=== PATIENT | male | born 1940 | race Caucasian/White ===

== ENCOUNTER 2021-04-21 17:00 | Inpatient (IN) | payer OTHER, SELFPAY ==
[~2021-04-21] VITALS: Ht 182.9 cm; Wt 80.7 kg
--- NOTE | 2021-04-21 17:11 | NUR ---
Patient STONE WOOD from [facility], transferred to bed 3. RN evaluating the patient at bedside.
--- NOTE | 2021-04-21 17:21 | NUR ---
Dr. Thayer is evaluating the patient at bedside.
[2021-04-21 17:24] VITALS: BP 127/79
--- NOTE | 2021-04-21 17:33 | NUR ---
Spoke with DONG Chowdhury from [facility]. Per DONG Chowdhury pt A&Ox1 is pt baseline and pt is not eating declining [id number]. Per DONG Chowdhury pt has dementia and is not to be called. Pastor Servando Bragg is pt decision-maker [phone] Thayer pending admission for g-tube placement. Obtained verbal consent with DONG Segundo and DONG Crook.
--- NOTE | 2021-04-21 17:36 | NUR ---
80 MALE BIBA FROM [facility] DUE TO PATIENT NOT EATING/DRINKING ANY FOOD FOR 3 WEEKS. EMS STATES "PATIENT HAS REFUSED TO EAT/DRINK AND TAKE ANY OF HIS MEDICATIONS SINCE LAST WEDNESDAY. [facility] WOULD LIKE A G-TUBE PLACED DUE TO PT NOT EATING" PT A&O X1 TO NAME ONLY, WHICH IS BASELINE FOR PT. PT CURRENTLY HAS D5NS RUNNING AND CURRENT GLUCOSE IS 91. PMH: CVA, DEPRESSION, HTN, SCHIZOPHRENIA, ENCEPHALOPATHY NKA
[2021-04-21] MEDS ORDERED: BISA-246 RC (17:54)
[2021-04-21] MEDS ORDERED: MIRABULK PO (17:54)
[2021-04-21] MEDS ORDERED: ATOR40TA PO (17:54)
[2021-04-21] MEDS ORDERED: MULT-2253 PO (17:54)
[2021-04-21] MEDS ORDERED: TRAZ-343 PO (17:54)
[2021-04-21] MEDS ORDERED: MAGN400S60 PO (17:54)
[2021-04-21] MEDS ORDERED: ATEN25TA7 PO (17:54)
[2021-04-21] MEDS ORDERED: DIVA500T1 PO (17:54)
[2021-04-21] MEDS ORDERED: NIFE30TE5 PO (17:54)
[2021-04-21] MEDS ORDERED: FAMO-90 PO (17:54)
[2021-04-21] MEDS ORDERED: TAMS0.4C96 PO (17:54)
--- NOTE | 2021-04-21 17:56 | NUR ---
COLLECTED MAICO GARLAND, WALKED TO LAB.
--- NOTE | 2021-04-21 18:00 | NUR ---
LAB BEDSIDE WITH PT
[2021-04-21 18:30] LABS: BASOPHILS % (AUTO) 0.5 % (0.0-2.0); EOSINOPHILS # (AUTO) 0.2 K/uL (0-0.4); EOSINOPHILS % (AUTO) 3.9 % (0.0-4.0); HEMATOCRIT 26.8 % (36-52); LYMPHOCYTES # (AUTO) 0.9 K/uL (2.0-11.5); LYMPHOCYTES % (AUTO) 20.7 % (20.5-51.1); MEAN CORPUSCULAR HEMOGLOBIN 32 pg (27-31); MEAN CORPUSCULAR HGB CONC 34 g/dL (33-37); MEAN CORPUSCULAR VOLUME 94.2 fL (80-94); MONOCYTES # (AUTO) 0.6 K/uL (0.8-1.0); MONOCYTES % (AUTO) 14.3 % (1.7-9.3); NEUTROPHILS # (AUTO) 2.6 K/uL (1.8-7.7); NEUTROPHILS % (AUTO) 60.6 % (42.2-75.2); PLATELET COUNT (AUTO) 156 K/uL (140-450); RED BLOOD CELL COUNT(AUTO) 2.84 MIL/uL (4.20-6.10); RED CELL DISTRIBUTION WIDTH 14.9 % (11.6-13.7); WHITE BLOOD COUNT (AUTO) 4.3 K/uL (4.8-10.8)
[2021-04-21 18:42] LABS: PROTHROMBIN TIME 11.6 secs (10.8-13.4)
[2021-04-21 18:49] LABS: ALBUMIN 2.2 g/dL (3.4-5.0); ANION GAP 11.7 (8-16); ASPARTATE AMINOTRANSFERASE 22 U/L (15-37); CHLORIDE 109 mmol/L (98-107); CREATININE 1.4 mg/dL (0.6-1.3); GLUCOSE 103 mg/dL (74-106); POTASSIUM 3.7 mmol/L (3.5-5.1); SODIUM SERUM 140 mmol/L (136-145); TOTAL BILIRUBIN 0.4 mg/dL (0.0-1.0); UREA NITROGEN, BLOOD 23 mg/dL (7-18)
--- NOTE | 2021-04-21 19:20 | NUR ---
PT RESTING BEDSIDE. VITAL SIGNS STABLE. WILL CONTUINE TO MONITOR. BED IN LOWEST POSITION.
--- NOTE | 2021-04-21 19:24 | NUR ---
Gave report to DONG Jackson. Transfer of care at this time.
--- NOTE | 2021-04-21 19:25 | NUR ---
GAVE REPORT TO SPARKLE UMANA. TRANSFER OF CARE GIVEN
--- NOTE | 2021-04-21 19:55 | NUR ---
PT. LAYING IN SUPINE POSITION, VOICES NO COMPLAINTS AT THIS TIME. BREATHING EVEN AND UNLABORED. WILL CONTINUE TO MONITOR.
[2021-04-21] MEDS ORDERED: DEXT 5% / NACL 0.45% 1,000 ML IV ONE (21:25)
--- NOTE | 2021-04-21 22:03 | NUR ---
ATTEMPTED TO CALL RN. BRENNA LINE WAS NOT PICKED UP. WILL CALL AGAIN IN 5 MINS. Addendum: 04/21/21 at 2203 by DYANA TO GIVE REPORT TO DONG CEJA.
--- NOTE | 2021-04-21 22:14 | NUR ---
Patient will be admitted to care of DR. DE LA FUENTE. Admited to TELEMETRY UNIT. Will go to room 123A. Belongings list completed. Report CALLED TO DONG CEJA.
--- NOTE | 2021-04-21 22:26 | NUR ---
PT. TAKEN TO TELEMETRY UNIT VIA GURNEY, TO ROOM 123A. ACCOMPANIED BY THA KUO AND DONG VILLAGRAN (MYSELF)
--- NOTE | 2021-04-21 22:30 | NUR ---
RECEIVED REPORT FROM [facility] IN ER AT 2215, PT ARRIVED VIA GURNEY AND WAS TRANSFERRED TO ROOM 123 BED A. PT IS ALERT AND ORIENTED TO SELF. HE DENIES ANY PAIN AND HIS SKIN IS INTACT. HE HAS A 22 GUAGE ON HIS RIGHT HAND WHICH IS SALINE LOCKED AT THE TIME. PT PLACED ON TELEMETRY AND MRSA SWAB DONE. V/S FOLLOWS: T 98.1 P 69 R 18 B/P 110/77 02 96% ON ROOM AIR. BED IN LOW POSITION AND LOCKED AND BED ALARM ON.
--- NOTE | 2021-04-21 23:15 | NUR ---
PT WAS GIVEN BED BATH AND YELLOW GOWN FOR FALLS PRECAUTIONS PLACE. PT RUNNING D5N/S AT 60MLS/HR ORDERED. PT DENIES ANY PAIN . PT WAS TURNED AND REPOSITIONED IN BED. NO S/S OF PAIN OR DISTRESS NOTED , ALL ORDERED PRECAUTIONS IN PLACE.
--- NOTE | 2021-04-22 00:30 | NUR ---
PT ASLEEP IN BED ND5N/S RUNNING ORDERED V/S FOLLOWS: T 97.8 P 71 R 18 B/P 133/80 02 94% ON ROOM AIR. ALL FALLS PRECAUTIONS IN PLACE AND PT IS NPO FOR G TUBE PLACEMENT.
[2021-04-22 03:41] VITALS: BP 110/71
[2021-04-22 04:00] VITALS: BP 119/78
--- NOTE | 2021-04-22 04:30 | NUR ---
PT WAS TURNED , CHANGED AND REPOSITIONED IN BED , NO S/S OF PAIN OR DISTRESS NOTED, PT ON ROOM AIR. HE IS RUNNING FLUIDS ORDERED. PT REMAINS NPO., ALL ORDERED PRECAUTIONS IN PLACE.
--- NOTE | 2021-04-22 07:30 | NUR ---
RECEIVED REPORT FROM DAY SHIFT NURSE. PT IN BED RESTING. PT AAOX1, CONFUSED. RESPIRATIONS EVEN AND UNLABORED TO ROOM AIR. ABDOMEN IS SOFT AND NON-TENDER. SKIN IS WARM, DRY, AND INTACT. PT WITH IV ACCESS ON R HAND G22 PATENT AND INTACT. PT DENIES ANY PAIN OR DISCOMFORT AT THIS TIME. NO REQUESTS MADE. PT KEPT COMFORTABLE. SAFETY MEASURES IN PLACE, CALL LIGHT WITHIN REACH. WILL CONTINUE TO MONITOR.
[2021-04-22 08:00] VITALS: BP 141/77
--- NOTE | 2021-04-22 08:46 | NUR ---
PATIENT HAS BEEN SCREENED AND CATEGORIZED HIGH NUTRITION RISK. PATIENT WILL BE SEEN WITHIN 1-2 DAYS OF ADMISSION. 04/22/21-04/23/21 RECEIVED FNS REFERRAL FOR REFUSING TO EAT OVER [address]
--- NOTE | 2021-04-22 09:34 | NUR ---
PERINEAL CARE DONE WITH SMOKEHOUSE OPERATOR. PT TOLERATED WELL. PT DENIES ANY PAIN OR DISCOMFORT AT THIS TIME. VSS. WILL CONTINUE TO MONITOR.
[2021-04-22 12:00] VITALS: BP 120/83
--- NOTE | 2021-04-22 12:17 | NUR ---
VS STABLE. PT DENIES PAIN OR DISTRESS. VISITOR AT BEDSIDE.
--- NOTE | 2021-04-22 14:00 | NUR ---
04/22/21 RD INITIAL ASSESSMENT COMPLETED PLEASE REFER TO NUTRITION ASSESSMENT UNDER CARE ACTIVITY FOR ESTIMATED NUTRITIONAL NEEDS. 1. PENDING SWALLOW EVALUATION RECOMMENDATIONS BY RECONCILIATION ANALYST 2. PENDING GI CONSULT FOR A PEG PLACEMENT 3. RECOMMEND JEVITY 1.2 @ 70 ML/HR WITH FREE WATER FLUSH OF 180 ML Q4H; START AT 20 ML/HR AND INCREASE BY 20 ML/HR Q4H -THIS WILL PROVIDE 2016 KCAL AND 93 GRAMS OF PROTEIN, MEETING ADEQUATE NUTRITIONAL NEEDS 4. RD TO FOLLOW-UP 2-3 DAYS, HIGH RISK MILADIS LIRA RD
--- NOTE | 2021-04-22 14:36 | NUR ---
PT ASLEEP. NO S/SX OF DISTRESS NOTED. IVF INFUSING WELL. PT KEPT COMFORTABLE. SAFETY MEASURES IN PLACE. WILL CONTINUE TO MONITOR.
[2021-04-22] MEDS ORDERED: ONDANSETRON 4 MG/2 ML VIAL IM/IVP PRN (15:00)
[2021-04-22] MEDS ORDERED: POTASSIUM CHLORIDE 10 MEQ TABER PO PRN (15:00)
[2021-04-22] MEDS ORDERED: NACL 0.45% 1,000 ML IV SCH (15:00)
[2021-04-22] MEDS ORDERED: LORazepam 2 MG/ML VIAL IM/IVP PRN (15:00)
[2021-04-22] MEDS ORDERED: ACETAMINOPHEN 325 MG TAB PO PRN (15:00)
[2021-04-22] MEDS ORDERED: ZOLPIDEM 5 MG TAB PO PRN (15:00)
[2021-04-22] MEDS ORDERED: DOCUSATE SODIUM 100 MG GELCAP PO PRN (15:00)
[2021-04-22] MEDS ORDERED: HYDROcodone/APAP 5/325 MG 1 TAB TAB PO PRN (15:00)
[2021-04-22] MEDS ORDERED: MAG SULF 2000 MG/WATER PREMIX 50 ML IV PRN (15:00)
[2021-04-22 16:00] VITALS: BP 145/76
--- NOTE | 2021-04-22 16:22 | NUR ---
PT PULLED OUT IV, CANNULA INTACT. NEW IV ACCESS INSERTED ON R FOREARM G22. IVF INFUSING WELL.
[2021-04-22 16:36] LABS: BASOPHILS % (AUTO) 0.5 % (0.0-2.0); EOSINOPHILS # (AUTO) 0.1 K/uL (0-0.4); EOSINOPHILS % (AUTO) 2.6 % (0.0-4.0); HEMATOCRIT 28.4 % (36-52); HEMOGLOBIN 9.6 g/dL (12.0-18.0); MEAN CORPUSCULAR HEMOGLOBIN 32 pg (27-31); MEAN CORPUSCULAR HGB CONC 34 g/dL (33-37); MEAN CORPUSCULAR VOLUME 94.1 fL (80-94); MONOCYTES # (AUTO) 0.7 K/uL (0.8-1.0); MONOCYTES % (AUTO) 15.3 % (1.7-9.3); NEUTROPHILS # (AUTO) 2.7 K/uL (1.8-7.7); NEUTROPHILS % (AUTO) 59.6 % (42.2-75.2); PLATELET COUNT (AUTO) 172 K/uL (140-450); RED BLOOD CELL COUNT(AUTO) 3.02 MIL/uL (4.20-6.10); WHITE BLOOD COUNT (AUTO) 4.5 K/uL (4.8-10.8)
[2021-04-22 16:51] LABS: ANION GAP 10.8 (8-16); CARBON DIOXIDE 24.9 mmol/L (21-32); CHLORIDE 107 mmol/L (98-107); CREATININE 1.5 mg/dL (0.6-1.3); GLUCOSE 87 mg/dL (74-106); POTASSIUM 3.7 mmol/L (3.5-5.1); SODIUM SERUM 139 mmol/L (136-145); UREA NITROGEN, BLOOD 18 mg/dL (7-18)
[2021-04-22 17:06] LABS: MAGNESIUM 1.8 mg/dL (1.8-2.4); THYROID STIMULATING HORMONE 1.89 uIU/mL (0.34-3.74)
--- NOTE | 2021-04-22 19:24 | NUR ---
REPORT GIVEN TO GIORGI UMANA FOR CONTINUITY OF CARE
--- NOTE | 2021-04-22 19:25 | NUR ---
RECEIVED REPORT FROM AM SHIFT. PT AWAKE, CALM, REPEATEDLY ASKING FOR JJ, VOICES NO C/O PAIN OR DISCOMFORT, NO ABNORMAL FACIAL EXPRESSION. NO S/S OF DISTRESS NOTED.
[2021-04-22 20:20] VITALS: BP 147/80
--- NOTE | 2021-04-22 22:10 | NUR ---
MED PASS DONE. PT TOLERATED SC INJECTION WELL WAS COOPERATIVE, AND RE-DIRECTABLE, FIDGETING W/ BLANKET.
--- NOTE | 2021-04-22 22:45 | NUR ---
PT BECAME MORE AGITATED, AND NOT REDIRECTABLE, W/ WORD SALAD, ASKING FOR JJ, IN AN UPSET TONE, REMOVING HIS BLANKET, AND DESTINEE WRAP FROM OVER IV LINE. MEDICATED W/ ATIVAN 0.5MG IM / ZOFRAN 4 MG IVP TO ALLAY ANXIETY.
--- NOTE | 2021-04-22 23:30 | NUR ---
ON ROUNDS PT REMOVED COVERS, PARTIALLY ASLEEP, CALMER. REPOSITIONED, RE-COVERED W/ A WARM BLANKET, AND PERSONAL BLANKET. rESP REG NON-LABORED. RESTING QUIETLY. ATIVAN/ ZOFRAN EFFECTIVE IN ALLAYING PT ANXIETY.
[2021-04-23] MEDS ORDERED: bisacodyL 10 MG SUPP RC PRN (00:15)
[2021-04-23] MEDS ORDERED: DIVALPROEX 500 MG TABER PO PRN (00:15)
[2021-04-23] MEDS ORDERED: traZODone 50 MG TAB PO PRN (00:15)
[2021-04-23] MEDS ORDERED: NIFEdipine 30 MG TABER PO PRN (00:15)
[2021-04-23] MEDS ORDERED: MAGNESIUM HYDROXIDE 2400 MG/30 ML UDC PO PRN (00:15)
[2021-04-23] MEDS ORDERED: FAMOTIDINE 20 MG TAB PO PRN (00:15)
[2021-04-23] MEDS ORDERED: atenoloL 25 MG TAB PO PRN (00:15)
[2021-04-23] MEDS ORDERED: DEXT 5% / NACL 0.9% 500 ML IV SCH (00:20)
--- NOTE | 2021-04-23 01:40 | NUR ---
ON ROUNDS PT ASLEEP. RESP REG NON-LABORED. HEAD REPOSITIONED, AND COVERED W/ BLANKET.
--- NOTE | 2021-04-23 03:10 | NUR ---
PT REPOSITIONED, ASLEEP. RESP REG NON-LABORED, NO S/S OF DISTRESS NOTED.
--- NOTE | 2021-04-23 04:25 | NUR ---
NO BED SCALE, PT BED BOUND Addendum: 04/23/21 at 0537 by Agency 02 RN RN ALVIN: CAS ARMSTRONG
[2021-04-23 04:50] VITALS: BP 145/70
[2021-04-23 05:26] LABS: BASOPHILS % (AUTO) 0.7 % (0.0-2.0); EOSINOPHILS # (AUTO) 0.2 K/uL (0-0.4); EOSINOPHILS % (AUTO) 3.6 % (0.0-4.0); HEMATOCRIT 29.2 % (36-52); HEMOGLOBIN 9.9 g/dL (12.0-18.0); LYMPHOCYTES # (AUTO) 1.2 K/uL (2.0-11.5); LYMPHOCYTES % (AUTO) 23.1 % (20.5-51.1); MEAN CORPUSCULAR HEMOGLOBIN 32 pg (27-31); MEAN CORPUSCULAR HGB CONC 34 g/dL (33-37); MONOCYTES # (AUTO) 0.8 K/uL (0.8-1.0); MONOCYTES % (AUTO) 15.2 % (1.7-9.3); NEUTROPHILS % (AUTO) 57.4 % (42.2-75.2); PLATELET COUNT (AUTO) 178 K/uL (140-450); RED BLOOD CELL COUNT(AUTO) 3.11 MIL/uL (4.20-6.10); RED CELL DISTRIBUTION WIDTH 14.9 % (11.6-13.7); WHITE BLOOD COUNT (AUTO) 5.3 K/uL (4.8-10.8)
[2021-04-23 05:51] LABS: MAGNESIUM 1.6 mg/dL (1.8-2.4)
[2021-04-23 06:11] LABS: ANION GAP 11.4 (8-16); CARBON DIOXIDE 23.3 mmol/L (21-32); CHLORIDE 107 mmol/L (98-107); CREATININE 1.4 mg/dL (0.6-1.3); GLUCOSE 75 mg/dL (74-106); POTASSIUM 3.7 mmol/L (3.5-5.1); SODIUM SERUM 138 mmol/L (136-145); UREA NITROGEN, BLOOD 17 mg/dL (7-18)
--- NOTE | 2021-04-23 06:59 | NUR ---
AM CARE DONE. PT REPOSITIONED. TOLERATED WELL, COVERED W/ WARM BLANKET. ASLEEP AT PRESENT, RESP REG NON-LABORED, NO S/S OF DISTRESS NOTED
[2021-04-23] MEDS ORDERED: DOCUSATE 100 MG/10 ML UDC PO PRN (07:20)
[2021-04-23] MEDS ORDERED: DIVALPROEX 500 MG TABEC PO PRN (07:20)
--- NOTE | 2021-04-23 07:30 | NUR ---
PT ENDORSED BY GUEST SERVICES AGENT NURSE FOR CONTINUITY OF CARE, POC DISCUSSED. PT IS RESTING COMFORTABLE IN BED WITH NO SIGNS OF ACUTE DISTRESS. PT HAS A RIGHT WRIST IV 22G RUNNING 1/2 NS AT 50 ML/HR. PT IS ON ROOM AIR WITH CHEST RISING AND FALLING EVEN AND UNLABORED. PT IS PENDING A SWALLOW EVAL WITH POSSIBLE G TUBE PLACEMENT. PT IS NOT A&O. ALL SAFETY MEASURES IN PLACE, CALL LIGHT WITHIN REACH. WILL CONTINUE TO MONITOR.
[2021-04-23] MEDS: DEXT 5% /NACL 0.9% 1,000 ML IV SCH (07:51)
[2021-04-23 08:00] VITALS: BP 123/83
[2021-04-23] MEDS: POLYETHYLENE GLYCOL 17 GM/PKT PO SCH (08:02)
[2021-04-23] MEDS: MULTIVITAMIN 1 TAB PO SCH (08:02)
--- NOTE | 2021-04-23 08:03 | NUR ---
ST REPORTED PT UNABLE TO SWALLOW.
--- NOTE | 2021-04-23 08:05 | NUR ---
PT WS SEEN FOR DYSPHAGIA. PT WAS POCKETING FOR TRIALS OF PUREE DIET. HIGH RISK OF ASPIRATION. RECOMMENDATION NOTHING BY MOUTH
[2021-04-23 08:18] LABS: T4 (THYROXINE) 5.9 ug/dL (4.5-12.0)
--- NOTE | 2021-04-23 08:48 | NUR ---
SAVANNAH HEPARIN ADMINISTRATION. PRN MAG ADMINSTERED PER MD ORDER FOR LOW MAGNESIUM LEVEL. PT IS AWAKE AND ORIENTED X1. PT VITAL SIGNS WNL. WARM BLANKET GIVEN TO PT. PT IS ON RA WITH NO S/S OF ACUTE DISTRESS. ALL SAFETY MEASURES IN PLACE, WILL CONTINUE TO MONITOR.
[2021-04-23] MEDS ORDERED: NON-FORMULARY ITEM (Multivitamin (Multi-Vitamin Daily) 1 TAB) PO SCH (09:00)
--- NOTE | 2021-04-23 09:38 | NUR ---
PT. WITH LOW LORI SCALE AT HIGH RISK, CONTINUE TO FOLLOW PRESSURE INJURY PREVENTION INTERVENTIONS. -TURN AND REPOSITION PATIENT Q 2H -ASSESS AND MONITOR SKIN CONDITION DURING POSITION CHANGE -OFFLOAD BILATERAL HEELS BY PLACING PILLOWS UNDER CALVES AT ALL TIMES, UNLESS OTHERWISE CONTRAINDICATED -PRESSURE REDISTRIBUTION BY PLACING PILLOWS AND OFFLOADING SACRALCOCCYX -KEEP SKIN CLEAN AND DRY AT ALL TIMES.
--- NOTE | 2021-04-23 09:40 | NUR ---
PT IS ASLEEP IN BED WITH CHEST RISING AND FALLING EVEN AND UNLABORED. ALL SAFETY MEASURES PLACE, WILL CONTINUE TO MONITOR.
--- NOTE | 2021-04-23 10:43 | NUR ---
PT IS ASLEEP WITH O2 AT 86%, PLACED ON 2L NC AND NOW SATING AT 97%. PT EDUCATION PROVIDED, PT UNABLE TO VERBALIZE UNDERSTANDING BUT SAID "THANK YOU". ALL SAFETY MEASURES IN PLACE, CALL LIGHT WITHIN REACH. WILL CONTINUE TO MONITOR.
[2021-04-23] MEDS ORDERED: SODIUM PHOSPHATE 15 MMOLE in NACL 0.9% 250 ML IV SCH (12:10)
[2021-04-23] MEDS ORDERED: POTASSIUM PHOSPHATE 15 MM in NACL 0.9% 250 ML IV ONE (12:10)
--- NOTE | 2021-04-23 12:52 | NUR ---
PT ENDORSED TO DONG REINOOS FOR CONTINUITY OF CARE. POC DISCUSSED.
--- NOTE | 2021-04-23 12:55 | NUR ---
RECEIVED REPORT FROM SAAMNTA UMANA FOR CONTINUITY OF CARE. AO TO SELF. MED SURG. ON 2L NASAL CANNULA, SATURATING AT 97%. FAILED SWALLOW EVAL, ON NPO. IV CLEAN, DRY, AND INTACT, ON RFA, INFUSING D5 1/2 NS AT 60 ML/HR. BILATERAL HEEL REDNESS. SAFETY MEASURES IN PLACE, BED IN LOW POSITION, BED LOCKED, HEAD OF BED AT 30 DEGREES. WILL CONTINUE TO MONITOR.
[2021-04-23] MEDS ORDERED: MAG SULF 2000 MG/WATER PREMIX 50 ML IV SCH (13:30)
--- NOTE | 2021-04-23 15:19 | NUR ---
DC PLANNING: PATIENT CONFUSED, ABLE TO SPEAK BUT NOT ANSWER QUESTIONS. ATTEMPTED TO REACH HIS SPOUSE JHON, MESSAGE LEFT INTRODUCING SELF. CM SPOKE WITH EMANUEL AT [facility]. PATIENT IS CONFUSED, ORIENTED X 1. INCONTINENT X 2, DEPENDENT FOR ALL CARE. EMANUEL STATES PATIENT IS VERY WEAK, UNABLE TO LIFT UTENSILS TO FEED SELF. DPOA FOR PATIENT IS HIS ELEMENTARY SPECIAL EDUCATION TEACHER RASHAD MENCHACA, PHONE [phone], ENDORSED DPOA TO SARAHI ON [facility]. PATIENT WAS LIVING AT HOME UNTIL A MONTH AGO WHEN HE HAD A CVA, TRANSFERRED TO SNF FROM ACUTE SETTING. ABLE TO FOLLOW COMMANDS, IS BEDBOUND. CM WILL ATTEMPT TO SPEAK WITH AND WILL CONTINUE TO FOLLOW FOR NEEDS. Addendum: 04/24/21 at 1541 by Marisol Plascencia CM DC PLANNING: INFORMATION FAXED TO [facility] IN PREPARATION FOR PATIENT RETURN TO FACILITY. MESSAGE ALSO LEFT WITH THE CM FOR [employer]OMED REQUESTING AUTHORIZATION FOR GURNEY TRANSPORT BACK TO [facility]. CM WILL CONTINUE TO FOLLOW FOR NEEDS. Addendum: 04/25/21 at 1156 by Marisol Plascencia CM DC PLANNING: SPOKE WITH CROW SANTANA FROM [facility], AUTH GIVEN FOR GURNEY TRANSPORT WITH [facility] ([phone]), AUTH # [id number]. ROOM ASSIGNMENT AT [facility] IS MD Najma FOLLOWING IS FANTASMA MO. DENTAL SALES REPRESENTATIVE TIME FOR PATIENT IS 3PM, PATIENTS MARLENY MENCHACA ALSO NOTIFIED OF DC, STATES HE WILL NOTIFY PATIENTS . INFORMATION ENDORSED TO PATIENTS NURSE HAJA. CM WILL CONTINUE TO FOLLOW FOR NEEDS.
--- NOTE | 2021-04-23 18:46 | NUR ---
CHECKED ON PATIENT. RESTING, NO SIGN OF DISTRESS OR PAIN. WILL CONTINUE TO MONITOR. WILL ENDORSE TO DIP GUIDER STOVES RN.
--- NOTE | 2021-04-23 19:25 | NUR ---
ENDORSED CARE TO DIANE UMANA FOR CONTINUITY OF CARE.
--- NOTE | 2021-04-23 19:30 | NUR ---
RECEIVED CARE AND REPORT FROM DAYSHIFT RN. PATIENT ALERT AND ORIENTED X1 TO PERSON, CONFUSED, NORMAL FOR PATIENT BASELINE PER DAYSHIFT RN. PATIENT RESTING IN THE BED IN A POSITION OF COMFORT, HOB 30 DEGREES, PATIENT CONNECTED TO NC 2 LPM, TOLERATING WELL. PATIENT HEART AND LUNG SOUNDS AUSCULTATED, S1, S2 HEARD, LUNG SOUNDS SLIGHTLY DIMINISHED IN THE BASES. ABDOMINAL SOUNDS AUSCULTATED, HYPOACTIVE X4 ALL QUADRANTS. HR 72, RR 16, OXYGEN SATURATION AT 96%, NO OBVIOUS SIGNS OF DISTRESS OBSERVED WHILE AT BEDSIDE, PATIENT STATES FEELING FINE WHEN ASKED. PATIENT CURRENT IV SITES INCLUDE RIGHT HAND 22G AND RIGHT AC 22G. IV DRIPS INCLUDE D5-NS 0.9% AT 60 ML/HR. IV SITES INTACT, DRESSING DRY AND FLUSHES WELL. PATIENT CURRENTLY UNABLE TO AMBULATE, BEDREST, RN ASSISTANCE WITH TOILETING, HYGIENE AND REPOSITIONING. SKINS SHOW BILATERAL REDNESS OF THE HEELS. BED LOCKED AND LOWERED INTO A POSITION OF SAFETY AND PATIENT BEING OFFLOADED WITH USE OF PILLOWS AND ASSISTED WITH REPOSITIONING. PATIENT ORIENTED TO THE ROOM, PROMOTING A RESTFUL ENVIRONMENT WITH DECREASED STIMULI, AND NURSE CALL LIGHT GIVEN TO PATIENT. WILL CONTINUE TO REASSESS OFTEN, CLOSELY MONITOR AND FREQUENTLY ROUND THROUGHOUT THE SHIFT.
[2021-04-23 20:00] VITALS: BP 138/83
[2021-04-23] MEDS: FAMOTIDINE 20 MG TAB PO SCH (20:00)
--- NOTE | 2021-04-23 20:30 | NUR ---
DR. RINA MELISSA CALLED UNIT PHONE, GIVEN VERBAL ORDERS TO KEEP THE PATIENT NPO AND MD INSTRUCTED TO HOLD ALL PO MEDICATIONS FOR TONIGHT DUE TO ASPIRATION PRECAUTION, PRIOR TO SCHEDULED G TUBE PLACEMENT. WILL CARRY OUT MD ORDERS.
[2021-04-23] MEDS: ATORVASTATIN 20 MG TAB PO SCH (20:32)
[2021-04-23] MEDS: TAMSULOSIN 0.4 MG CAP PO SCH (20:32)
--- NOTE | 2021-04-23 21:36 | NUR ---
PATIENT RESTING IN A POSITION OF COMFORT, STATES FEELING OK WHEN ASKED. NO OBVIOUS SIGNS OF DISTRESS OBSERVED WHILE AT BEDSIDE. VS STABLE, WILL CONTINUE TO CLOSELY MONITOR AND FREQUENTLY ROUND.
[2021-04-24] MEDS: DEXT 5% /NACL 0.9% 1,000 ML IV SCH (00:07)
--- NOTE | 2021-04-24 00:10 | NUR ---
PATIENT CONTINUES TO REST IN A POSITION OF COMFORT, RN ASSISTANCE WITH REPOSITIONING Q2 HOURS, NO OBVIOUS SIGNS OF DISTRESS OBSERVED WHILE AT BEDSIDE. WILL CONTINUE TO CLOSELY MONITOR AND FREQUENTLY ROUND.
--- NOTE | 2021-04-24 02:05 | NUR ---
VS STABLE, SLEEPING, HOB 30 DEGREES, AIRWAY OPEN, CLEAR AND MAINTAINABLE. NO OBVIOUS SIGNS OF DISTRESS OBSERVED WHILE AT BEDSIDE. WILL CONTINUE TO CLOSELY MONITOR AND FREQUENTLY ROUND.
[2021-04-24 04:00] VITALS: BP 128/84
--- NOTE | 2021-04-24 04:47 | NUR ---
MORNING CARE, GOWN CHANGE, LINEN CHANGE, CHG BATH, JYOTI CARE, HYGIENE, CLEANING AND SAFETY CHECKS PROVIDED. VS STABLE, NO SIGNS OF DISTRESS OBSERVED WHILE AT BEDSIDE. WILL CONTINUE TO CLOSELY MONITOR AND FREQUENTLY ROUND.
[2021-04-24 04:56] LABS: BASOPHILS % (AUTO) 0.9 % (0.0-2.0); EOSINOPHILS # (AUTO) 0.2 K/uL (0-0.4); EOSINOPHILS % (AUTO) 3.3 % (0.0-4.0); HEMOGLOBIN 9.2 g/dL (12.0-18.0); LYMPHOCYTES # (AUTO) 1.1 K/uL (2.0-11.5); LYMPHOCYTES % (AUTO) 23.8 % (20.5-51.1); MEAN CORPUSCULAR HEMOGLOBIN 32 pg (27-31); MEAN CORPUSCULAR HGB CONC 34 g/dL (33-37); MEAN CORPUSCULAR VOLUME 92.9 fL (80-94); MONOCYTES # (AUTO) 0.7 K/uL (0.8-1.0); MONOCYTES % (AUTO) 15.3 % (1.7-9.3); NEUTROPHILS # (AUTO) 2.6 K/uL (1.8-7.7); NEUTROPHILS % (AUTO) 56.7 % (42.2-75.2); PLATELET COUNT (AUTO) 165 K/uL (140-450); RED BLOOD CELL COUNT(AUTO) 2.91 MIL/uL (4.20-6.10); RED CELL DISTRIBUTION WIDTH 14.9 % (11.6-13.7); WHITE BLOOD COUNT (AUTO) 4.5 K/uL (4.8-10.8)
[2021-04-24 06:55] LABS: CHLORIDE 107 mmol/L (98-107); POTASSIUM 3.5 mmol/L (3.5-5.1); SODIUM SERUM 140 mmol/L (136-145)
--- NOTE | 2021-04-24 07:24 | NUR ---
RECEIVED REPORT FROM CERAMIC DESIGN ENGINEER NURSE FOR CONTINUITY OF CARE, POC DISCUSSED. PT IS RESTING IN BED WITH NO ACUTE S/S OF DISTRESS. PT IS ON 2L NC, WITH CHEST RISING AND FALLING EVEN AND UNLABORED. PT HAS BILATERAL HEEL PROTECTORS ON TO PREVENT PRESSURE WOUNDS. PT IS BEDBOUND. PT HAS A RIGHT HAND 22 G RUNNING D5NS AT 60 ML. PT HAS CONSENT PRINTED OUT, PENDING DR MELISSA TO SPEAK WITH RASHAD SPEAR. PT IS A&OX1. ALL SAFETY MEASURES IN PLACE, CALL LIGHT WITHIN REACH WILL CONTINUE TO MONITOR.
[2021-04-24 07:25] LABS: ANION GAP 13.7 (8-16); CARBON DIOXIDE 22.8 mmol/L (21-32); CREATININE 1.5 mg/dL (0.6-1.3); GLUCOSE 85 mg/dL (74-106); UREA NITROGEN, BLOOD 16 mg/dL (7-18)
--- NOTE | 2021-04-24 07:27 | NUR ---
REPORT AND CARE ENDORSED TO DAYSHIFT RN, VS STABLE.
[2021-04-24 07:30] LABS: MAGNESIUM 1.9 mg/dL (1.8-2.4); PHOSPHORUS 2.9 mg/dL (2.5-4.9)
[2021-04-24 08:00] VITALS: BP 143/86
[2021-04-24] MEDS: POLYETHYLENE GLYCOL 17 GM/PKT PO SCH (08:04)
[2021-04-24] MEDS: MULTIVITAMIN 1 TAB PO SCH (08:05)
--- NOTE | 2021-04-24 08:05 | NUR ---
SAVANNAH PO MEDICATION NON-ADMINISTERED, PT IS UNABLE TO SWALLOW, FAILED YESTERDAYS SWALLOW EVAL. SENIOR DIRECTOR OF STRATEGY NURSE SAID DR IS AWARE OF PT UNABLE TO RECEIVE PO MEDICATION.
--- NOTE | 2021-04-24 08:58 | NUR ---
NON ADMINISTERED SAVANNAH HEPARAN DUE TO POSSIBLE GTUBE PLACEMENT AND EGD TODAY. ROUNDED ON PT, PT IS SATING AT 98% ON 2L NC. PT DENIES PAIN OR DISCOMFORT AT THIS TIME, A&OX1, PT IV IS PATENT AND INTACT RUNNING D5NS @60, NO NEW FLUIDS NEEDED AT THIS TIME. PT REPORTS ALL NEEDS MET. ALL SAFETY MEASURES IN PLACE, CALL LIGHT WITHIN REACH. WILL CONTINUE TO MONITOR.
--- NOTE | 2021-04-24 11:00 | NUR ---
REGULAR ROACH CATHETER INSERTED, NOTIFIED OF IT BEING A REGULAR ROACH AND NOT A 3WAY ROACH, DR STATED THAT IS OKAY. PT TOLERATED INSERTION. 300 ML OF MILKY TINGED URINE WAS EXPELLED. DR. THURMAN NOTIFIED OF THE COLOR. ORDERED A URINE CULTURE. WILL PLACE THAT ORDER AND SEND IT TO LAB STAT.
--- NOTE | 2021-04-24 11:30 | NUR ---
PT COMPLAINED OF PAIN, PER MD ORDER, ADMINISTERED PAIN MEDICATION. PT EDUCATION PROVIDED. PT UNABLE TO COMPREHEND. PT TOLERATED ADMINISTRATION. URINE CULTURE COLLECTED PER DR. THURMAN ORDER AND TAKEN TO THE LAB. PT IS NOW RESTING IN BED WITH NO S/S OF ACUTE DISTRESS. ALL SAFETY MEASURES IN PLACE, CALL LIGHT WITHIN REACH. WILL CONTINUE TO MONITOR.
[2021-04-24] MEDS: MORPHINE SULFATE 2 MG/ML SYR IVP PRN ×2 (11:39→22:49)
[2021-04-24 12:48] LABS: APPEARANCE,URINE CLOUDY (CLEAR); BILIRUBIN,URINE NEGATIVE (NEGATIVE); BLOOD, URINE 3+ (NEGATIVE); COLOR,URINE YELLOW (YELLOW); LEUKOCYTE ESTERASE ,URINE 3+ (NEGATIVE); NITRITE, URINE POSITIVE (NEGATIVE); UGLUCOSE NEGATIVE (NEGATIVE)
[2021-04-24 12:53] LABS: WBC,URINE TOO MANY TO COUNT /HPF (0-5)
--- NOTE | 2021-04-24 14:10 | NUR ---
PT TAKEN TO THE OR ON [facility] IN STABLE CONDITION. LAST SET OF VITAL SIGNS GIVEN, HAND OFF REPORT GIVEN. PT IS IN STABLE CONDITION.
[2021-04-24] MEDS ORDERED: fentaNYL citrate 0.05 MG/ML VIAL ONE (14:33)
[2021-04-24] MEDS ORDERED: MIDAZOLAM 5 MG/5 ML VIAL ONE (14:33)
[2021-04-24] MEDS ORDERED: ceFAZolin 1,000 MG VIAL ONE (14:49)
--- NOTE | 2021-04-24 15:10 | NUR ---
PT BROUGHT BACK FROM OR IN STABLE CONDITION. PT HAD A EGD PEG PLACEMENT IN THE RIGHT UPPER QUADRANT AND IT IS INTACT. NO DRAINAGE NOTED. PT HAS AN ABD BINDER ON TO PREVENT PT FROM PULLING TUBE DUE TO HIS CONFUSION. VITAL SIGNS WNL, ON 2L NC. PT IS A&OX1 AT BASELINE.
[2021-04-24 16:00] VITALS: BP 156/92
--- NOTE | 2021-04-24 16:55 | NUR ---
Q15 AND 130 VITAL SIGNS COMPLETE, PT VITAL SIGNS REMAIN WNL. ALL SAFETY MEASURES IN PLACE, CALL LIGHT WITHIN REACH. WILL CONTINUE TO MONITOR.
[2021-04-24] MEDS ORDERED: MIDAZOLAM 2 MG/2 ML VIAL IVP ONE (17:10)
[2021-04-24] MEDS ORDERED: fentaNYL citrate 0.05 MG/ML VIAL IVP ONE (17:10)
--- NOTE | 2021-04-24 18:30 | NUR ---
GTUBE FEEDING WAS STARTED WITH JOWIE. RATE OF 30 ML/HR, 100 ML FLUSH Q4HR. PT EDUCATION PROVIDED BUT PT IS UNABLE TO COMPREHEND.
--- NOTE | 2021-04-24 19:33 | NUR ---
PT ENDORSED TO RADIO MESSAGE ROUTER NURSE FOR CONTINUITY OF CARE IN STABLE CONDITION
--- NOTE | 2021-04-24 19:34 | NUR ---
RECEIVED REPORT FROM DAY SHIFT NURSE ON BEDSIDE. PT AWAKE, AOX1, 2L NC, NO SIGNS OF DISTRESS, PEG TUBE IN PLACE RIGHT UPPER ABD, ROACH CATH IN PLACE,HEMATURIA NOTED, SAFETY MEASURES IMPLEMENTED, CALL LIGHT WITHIN REACH.
[2021-04-24 20:30] VITALS: BP 168/103
[2021-04-24] MEDS ORDERED: hydrALAZINE 20 MG/ML VIAL IVP SCH (20:30)
--- NOTE | 2021-04-24 20:30 | NUR ---
NOTIFIED DR. CASH ABOUT PT'S HIGH BP. ORDERS RECEIVED.
[2021-04-24] MEDS: ATORVASTATIN 20 MG TAB PO SCH (20:57)
[2021-04-24] MEDS: atenoloL 25 MG TAB PO SCH (20:58)
[2021-04-24] MEDS: FAMOTIDINE 20 MG TAB PO SCH (20:58)
[2021-04-24] MEDS: TAMSULOSIN 0.4 MG CAP PO SCH (20:58)
[2021-04-24] MEDS: LACTULOSE 20 GM/30 ML UDC PO SCH (20:59)
--- NOTE | 2021-04-24 20:59 | NUR ---
ADMINISTERED SCHEDULED MEDS VIA G TUBE, NO RESIDUAL NOTED, PATIENT TOLERATED WELL.
[2021-04-24 22:15] VITALS: BP 136/80
[2021-04-25 04:00] VITALS: BP 121/77
[2021-04-25 05:29] LABS: BASOPHILS % (AUTO) 0.3 % (0.0-2.0); EOSINOPHILS % (AUTO) 0.2 % (0.0-4.0); HEMATOCRIT 32.2 % (36-52); HEMOGLOBIN 10.8 g/dL (12.0-18.0); LYMPHOCYTES # (AUTO) 1.1 K/uL (2.0-11.5); LYMPHOCYTES % (AUTO) 9.5 % (20.5-51.1); MEAN CORPUSCULAR HEMOGLOBIN 31 pg (27-31); MEAN CORPUSCULAR HGB CONC 34 g/dL (33-37); MEAN CORPUSCULAR VOLUME 93.6 fL (80-94); MONOCYTES # (AUTO) 1.2 K/uL (0.8-1.0); MONOCYTES % (AUTO) 10.7 % (1.7-9.3); NEUTROPHILS % (AUTO) 79.3 % (42.2-75.2); PLATELET COUNT (AUTO) 220 K/uL (140-450); RED BLOOD CELL COUNT(AUTO) 3.43 MIL/uL (4.20-6.10); RED CELL DISTRIBUTION WIDTH 15.2 % (11.6-13.7); WHITE BLOOD COUNT (AUTO) 11.3 K/uL (4.8-10.8)
[2021-04-25 06:08] LABS: MAGNESIUM 1.8 mg/dL (1.8-2.4); PHOSPHORUS 2.6 mg/dL (2.5-4.9)
[2021-04-25 06:10] LABS: ANION GAP 13.9 (8-16); CARBON DIOXIDE 20.9 mmol/L (21-32); CHLORIDE 109 mmol/L (98-107); CREATININE 1.5 mg/dL (0.6-1.3); GLUCOSE 144 mg/dL (74-106); POTASSIUM 3.8 mmol/L (3.5-5.1); SODIUM SERUM 140 mmol/L (136-145); UREA NITROGEN, BLOOD 16 mg/dL (7-18)
--- NOTE | 2021-04-25 07:31 | NUR ---
PT REPORT GIVEN AT BEDSIDE. PT IN STABLE CONDITION
--- NOTE | 2021-04-25 07:32 | NUR ---
Received report from nurse. Pt resting in bed, awake, no signs of distress, respirations even & nonlabored in room air. GT in place with ongoing feeding of Jevity 1.2 @ 60ml/hr.
[2021-04-25 08:00] VITALS: BP 100/65
[2021-04-25 08:43] LABS: CREATININE,URINE RANDOM 64 mg/dL (30-125); URINE SODIUM, RANDOM 124 mmol/l (40-220)
[2021-04-25] MEDS ORDERED: CRUSHER, PILL MC ONE (08:57)
[2021-04-25] MEDS: atenoloL 25 MG TAB PO SCH ×2 (09:00→09:03)
[2021-04-25] MEDS: LACTULOSE 20 GM/30 ML UDC PO SCH (09:01)
[2021-04-25] MEDS: MULTIVITAMIN 1 TAB PO SCH (09:04)
[2021-04-25] MEDS ORDERED: LEVO750T51 PO (09:20)
[2021-04-25] MEDS: POLYETHYLENE GLYCOL 17 GM/PKT PO SCH (09:31)
--- NOTE | 2021-04-25 12:30 | NUR ---
Report given to DONG Winter from [facility]. Pt confirmed going to room 118B, Dr. Hakeem Leggett to assume care at SNF.
--- NOTE | 2021-04-25 15:20 | NUR ---
Patient discharged at this time via [facility], accompanied by 2 transporters. Patient is aaox1, respirations even & nonlabored in room air, no signs of distress. Right forearm IV discontinued, cannula intact. GT feeding stopped and flushed with 50mL NS. No belonging at bedside except for personal blanket. Pt left unit via gurney.
== END 2021-04-25 15:20 | DRG 391 ==
LOC: MED 17:00 → MTU 21:29
PROC: 0DH63UZ Insertion of Feeding Device into Stomach, Percutaneous Approach (ICD-10-PCS; principal; 2021-04-24 14:40)
DX: R13.10 Dysphagia, unspecified (principal); E43 Unspecified severe protein-calorie malnutrition; N17.0 Acute kidney failure with tubular necrosis; G93.40 Encephalopathy, unspecified; I10 Essential (primary) hypertension; E78.5 Hyperlipidemia, unspecified; K21.9 Gastro-esophageal reflux disease without esophagitis; N40.0 Benign prostatic hyperplasia without lower urinary tract symptoms; E83.39 Other disorders of phosphorus metabolism; G47.00 Insomnia, unspecified; E87.8 Other disorders of electrolyte and fluid balance, not elsewhere classified; K59.09 Other constipation; F32.9 Major depressive disorder, single episode, unspecified; F20.9 Schizophrenia, unspecified; K31.7 Polyp of stomach and duodenum; Z20.822 Contact with and (suspected) exposure to COVID-19; Z68.24 Body mass index [BMI] 24.0-24.9, adult; Z79.899 Other long term (current) drug therapy; Z86.73 Personal history of transient ischemic attack (TIA), and cerebral infarction without residual deficits
CPT/HCPCS: 36415; 76770; 80048; 80053; 81001; 82140; 82150; 82570; 83036; 83690; 83735; 83880; 84100; 84134; 84300; 84436; 84443; 85025; 85610; 87081; 87086; 92610; 92700; 99285; J0360; J0690; J1644; J2060; J2250; J2270; J2405; J3010; J3475; J7030; J7060

== ENCOUNTER 2021-05-09 15:32 | Inpatient (IN) | payer OTHER, SELFPAY ==
[~2021-05-09] VITALS: Ht 182.9 cm; Wt 92.1 kg
[~2021-05-09 15:32] MED LIST: ATEN25TA7 PO; ATOR40TA PO; BISA-246 RC; DIVA500T1 PO; FAMO-90 PO; LEVO750T51 PO; MAGN400S60 PO; MIRABULK PO; MULT-2253 PO; NIFE30TE5 PO; TAMS0.4C96 PO; TRAZ-343 PO
--- NOTE | 2021-05-09 15:32 | NUR ---
miles RITTER via gurney to bed 08.
--- NOTE | 2021-05-09 15:51 | NUR ---
ER MD BEDSIDE EVALUATING PT
[2021-05-09] MEDS ORDERED: NACL 0.9% 1,000 ML IV ONE (15:55)
[2021-05-09] MEDS ORDERED: VANCOMYCIN 1,000 MG in DEXTROSE 5% 250 ML IV ONE (15:55)
[2021-05-09 15:59] VITALS: BP 109/65
--- NOTE | 2021-05-09 16:00 | NUR ---
80 Y/O M JORGEA FROM [facility] FOR G TUBE MALFUNCTION FOR 10 DAYS. UPON INSPECTION, PT HAS GREEN DISCHARGE AND EDEMA AROUND AREA. PT IS CURRENTLY A&OX0 WITH A GCS OF 9. PUPILS NOT PERRLA, 2 MM PINPOINT PUPILS NOT REACTIVE TO LIGHT. 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
[2021-05-09] MEDS ORDERED: VANCOMYCIN 1,000 MG VIAL ONE (16:04)
--- NOTE | 2021-05-09 16:25 | NUR ---
PT TAKEN TO CT VIA W/C Addendum: 05/09/21 at 1625 by [email or web address] PT TAKEN TO CT VIA JAMES
--- NOTE | 2021-05-09 16:34 | NUR ---
PT RETURNED TO BED [address] V[address] [facility]
[2021-05-09 16:46] LABS: BASOPHILS # (AUTO) 0.1 K/uL (0.00-0.22); BASOPHILS % (AUTO) 1.4 % (0.0-2.0); EOSINOPHILS # (AUTO) 0.3 K/uL (0-0.4); EOSINOPHILS % (AUTO) 4.3 % (0.0-4.0); HEMATOCRIT 29.9 % (36-52); HEMOGLOBIN 9.8 g/dL (12.0-18.0); LYMPHOCYTES # (AUTO) 1.4 K/uL (2.0-11.5); LYMPHOCYTES % (AUTO) 20.7 % (20.5-51.1); MEAN CORPUSCULAR HEMOGLOBIN 31 pg (27-31); MEAN CORPUSCULAR HGB CONC 33 g/dL (33-37); MEAN CORPUSCULAR VOLUME 93.5 fL (80-94); MONOCYTES # (AUTO) 0.6 K/uL (0.8-1.0); MONOCYTES % (AUTO) 8.7 % (1.7-9.3); NEUTROPHILS # (AUTO) 4.3 K/uL (1.8-7.7); NEUTROPHILS % (AUTO) 64.9 % (42.2-75.2); PLATELET COUNT (AUTO) 263 K/uL (140-450); RED CELL DISTRIBUTION WIDTH 15.9 % (11.6-13.7); WHITE BLOOD COUNT (AUTO) 6.6 K/uL (4.8-10.8)
[2021-05-09 17:03] LABS: ALBUMIN 2.4 g/dL (3.4-5.0); ANION GAP 11.2 (8-16); ASPARTATE AMINOTRANSFERASE 78 U/L (15-37); CARBON DIOXIDE 26.8 mmol/L (21-32); CHLORIDE 109 mmol/L (98-107); CREATININE 1.4 mg/dL (0.6-1.3); GLUCOSE 109 mg/dL (74-106); SODIUM SERUM 143 mmol/L (136-145); TOTAL BILIRUBIN 0.4 mg/dL (0.0-1.0); UREA NITROGEN, BLOOD 39 mg/dL (7-18)
--- NOTE | 2021-05-09 19:36 | NUR ---
REPORT GIVEN TO SPARKLE RN, TRANSFER OF CARE AT THIS TIME
[2021-05-09] MEDS ORDERED: metroNIDAZOLE 500 MG/NS PREMIX 100 ML IV ONE (21:00)
[2021-05-09] MEDS ORDERED: PIPERACILLIN/TAZOBACTAM 3.375 GM in DEXTROSE 5% 50 ML IV ONE (21:00)
--- NOTE | 2021-05-09 21:45 | NUR ---
Nick feliciano in EDM - 05/09/21 at 2300 by [email or web address] DELAY IN MEDS DUE TO DIFFICULTY IN ACCESSING AN IV LINE, PT. TOOK OFF FIRST IV LINE AT 1720
--- NOTE | 2021-05-09 21:45 | NUR ---
DELAY IN MEDS DUE TO DIFFICULTY IN ACCESSING AN IV LINE, PT. TOOK OFF FIRST IV LINE AT 1720
[2021-05-09] MEDS ORDERED: traZODone 50 MG TAB PO PRN (22:30)
[2021-05-09] MEDS ORDERED: HYDROcodone/APAP 5/325 MG 1 TAB TAB PO PRN (22:30)
[2021-05-09] MEDS ORDERED: MORPHINE SULFATE 2 MG/ML SYR IVP PRN (22:30)
[2021-05-09] MEDS ORDERED: ACETAMINOPHEN 325 MG TAB PO PRN (22:30)
[2021-05-09] MEDS ORDERED: bisacodyL 10 MG SUPP RC PRN (22:30)
[2021-05-09] MEDS ORDERED: SODIUM PHOS / POTASSIUM PHOS 1 PKT PDR PO PRN (22:30)
[2021-05-09] MEDS ORDERED: NIFEdipine 30 MG TABER PO PRN (22:30)
[2021-05-09] MEDS ORDERED: POTASSIUM CHLORIDE 40 MEQ, LIDOCAINE MPF 1% 25 MG in NACL 0.9% 250 ML IV PRN (22:30)
[2021-05-09] MEDS ORDERED: NACL 0.9% 1,000 ML IV SCH (22:30)
[2021-05-09] MEDS ORDERED: DIVALPROEX 500 MG TABER PO PRN (22:30)
[2021-05-09] MEDS ORDERED: MAG SULF 2000 MG/WATER PREMIX 50 ML IV PRN (22:30)
[2021-05-09] MEDS ORDERED: MAGNESIUM HYDROXIDE 2400 MG/30 ML UDC PO PRN (22:30)
[2021-05-09] MEDS ORDERED: ONDANSETRON 4 MG/2 ML VIAL IM/IVP PRN (22:30)
--- NOTE | 2021-05-09 22:40 | NUR ---
NATASHA COMPLETED AND HANDED TO LAB
[2021-05-09 23:02] LABS: MAGNESIUM 2.3 mg/dL (1.8-2.4); PHOSPHORUS 3.9 mg/dL (2.5-4.9)
[2021-05-10] MEDS ORDERED: PIPERACILLIN/TAZOBACTAM 3.375 GM VIAL IV ONE (00:18)
[2021-05-10] MEDS ORDERED: metroNIDAZOLE 500 MG/NS PREMIX 100 ML IV ONE (01:31)
--- NOTE | 2021-05-10 01:39 | NUR ---
PT. LAYING IN SUPINE POSITION, VOICES NO COMPLAINTS AT THIS TIME. WILL CONTINUE TO MONITOR
--- NOTE | 2021-05-10 03:19 | NUR ---
PT. LAYING COMFORTABLY IN SUPINE POSITION, EYES OPEN . HR EVEN AND REGULAR WITH UNLABORED BREATHING. VOICES NO COMPLAINTS.
--- NOTE | 2021-05-10 03:45 | NUR ---
COVERING FOR PRIMARY NURSE DURING LUNCH. Patient appears to be resting comfortably in bed. Vital Signs within normal limits. Respirations even and unlabored.
[2021-05-10] MEDS ORDERED: AMOX-999 PO (04:59)
[2021-05-10] MEDS ORDERED: MULT-2253 PO (04:59)
[2021-05-10] MEDS ORDERED: AMLO5TAB PO (04:59)
[2021-05-10] MEDS ORDERED: ACET-9520 PO (04:59)
[2021-05-10] MEDS ORDERED: MIRABULK PO (04:59)
[2021-05-10] MEDS ORDERED: CLINDAMYCIN 600 MG/4 ML VIAL ONE ×3 (05:03→22:26)
[2021-05-10] MEDS: CLINDAMYCIN 600 MG in DEXTROSE 5% 50 ML IV SCH ×3 (05:15→22:35)
--- NOTE | 2021-05-10 05:57 | NUR ---
DELAY IN ZOSYN 2.25GM D5 IN 50 ML MEDICATION DUE TO UNSUCCESSFUL IV ATTEMPTS EARLIER. 1ST DOSE WILL BE AT 0630.
[2021-05-10 06:00] LABS: BASOPHILS # (AUTO) 0.1 K/uL (0.00-0.22); BASOPHILS % (AUTO) 0.9 % (0.0-2.0); EOSINOPHILS # (AUTO) 0.3 K/uL (0-0.4); EOSINOPHILS % (AUTO) 4.8 % (0.0-4.0); HEMATOCRIT 27.6 % (36-52); HEMOGLOBIN 9.1 g/dL (12.0-18.0); LYMPHOCYTES # (AUTO) 1.4 K/uL (2.0-11.5); LYMPHOCYTES % (AUTO) 20.1 % (20.5-51.1); MEAN CORPUSCULAR HEMOGLOBIN 31 pg (27-31); MEAN CORPUSCULAR HGB CONC 33 g/dL (33-37); MEAN CORPUSCULAR VOLUME 94.3 fL (80-94); MONOCYTES # (AUTO) 0.6 K/uL (0.8-1.0); MONOCYTES % (AUTO) 8.5 % (1.7-9.3); NEUTROPHILS # (AUTO) 4.7 K/uL (1.8-7.7); NEUTROPHILS % (AUTO) 65.7 % (42.2-75.2); PLATELET COUNT (AUTO) 247 K/uL (140-450); RED BLOOD CELL COUNT(AUTO) 2.93 MIL/uL (4.20-6.10); RED CELL DISTRIBUTION WIDTH 16.1 % (11.6-13.7); WHITE BLOOD COUNT (AUTO) 7.1 K/uL (4.8-10.8)
[2021-05-10] MEDS: PIPERACILLIN/TAZOBACTAM 2.25 GM in DEXTROSE 5% 50 ML IV SCH ×4 (06:00→18:59)
--- NOTE | 2021-05-10 06:25 | NUR ---
PT. LAYING IN SUPINE POSITION, RESTING WITH EYES CLOSED AND MOUTH OPEN. AUDIBLE SNORING SOUNDS CAN BE HEARD. VOICES NO COMPLAINTS AT THIS TIME
[2021-05-10] MEDS ORDERED: PIPERACILLIN/TAZOBACTAM 2.25 GM VIAL IV ONE ×2 (06:30→12:28)
[2021-05-10 06:32] LABS: ANION GAP 9.3 (8-16); CARBON DIOXIDE 26.7 mmol/L (21-32); CHLORIDE 110 mmol/L (98-107); CREATININE 1.3 mg/dL (0.6-1.3); GLUCOSE 91 mg/dL (74-106); SODIUM SERUM 142 mmol/L (136-145); UREA NITROGEN, BLOOD 31 mg/dL (7-18)
--- NOTE | 2021-05-10 07:07 | NUR ---
GIVEN REPORT TO DONG RODRIGUES. TRANSFER OF CARE AT THIS TIME.
--- NOTE | 2021-05-10 07:30 | NUR ---
ASSUMED CARE FROM MILADIS UMANA, REPORT RECEIVED, PATIENT IS CURRENTLY RESTING WITH EYES CLOSED, VITAL SIGNS STABLE, RESP EVEN AND UNLABORED.
--- NOTE | 2021-05-10 08:49 | NUR ---
PATIENT HAS BEEN SCREENED AND CATEGORIZED HIGH NUTRITION RISK. PATIENT WILL BE SEEN WITHIN 1-2 DAYS OF ADMISSION. 05/10/21-05/11/[address]
[2021-05-10] MEDS ORDERED: FAMOTIDINE 20 MG TAB PO SCH (09:00)
--- NOTE | 2021-05-10 09:27 | NUR ---
AWAKE, SMILED. LAYING IN SUPINE POSITION, ATTEMPTED TO TURN PATIENT TO SIDE, REFUSES AT THIS TIME.
[2021-05-10] MEDS: POLYETHYLENE GLYCOL 17 GM/PKT PO SCH (09:30)
[2021-05-10] MEDS: DOCUSATE SODIUM 100 MG GELCAP PO SCH ×2 (09:30→22:33)
[2021-05-10] MEDS ORDERED: DIVALPROEX 500 MG TABEC PO ONE (09:42)
--- NOTE | 2021-05-10 10:39 | NUR ---
BATH AND SKIN CARE PROVIDED, NOTED A 3 CM EXCORIATION TO LEFT BUTTOCK, CLEANSED AND DRESSED FOR PROTECTION. PICTURES ON CHART.
[2021-05-10] MEDS: PANTOPRAZOLE 40 MG INJ VIAL IVP SCH (10:43)
--- NOTE | 2021-05-10 12:10 | NUR ---
05/10/21 RD INITIAL ASSESSMENT COMPLETED PLEASE REFER TO NUTRITION ASSESSMENT UNDER CARE ACTIVITY FOR ESTIMATED NUTRITIONAL NEEDS. 1. RECOMMEND TPN UNTIL G-TUBE INFECTION CLEARED OR ALTERNATE TUBE PLACED 2. RECOMMEND ENTERAL FEEDING WHEN INFECTED WOUND HEALED 3. RD TO F/U 2-3 DAYS, HIGH RISK AJ PIZANO, ISMA
--- NOTE | 2021-05-10 14:50 | NUR ---
diaper changed, postion changed, noted additional small 1-2 cm excoriated skin to left buttock, documented with photos, skin barrier dressing applied. Changing position side to side today to avoid pressure to buttock.
--- NOTE | 2021-05-10 18:14 | NUR ---
resting, remains in NSR, resp even and unlabored, quiet, responds easily.
--- NOTE | 2021-05-10 19:19 | NUR ---
care endorsed to Selene Rogers RN
--- NOTE | 2021-05-10 20:00 | NUR ---
RESTING QUIETLY. ASSISTED WITH REPOSITIONING, PILLOWS PLACED. DIAPER CHANGED.
[2021-05-10] MEDS ORDERED: CRUSHER, PILL MC ONE (22:02)
[2021-05-10] MEDS: TAMSULOSIN 0.4 MG CAP PO SCH (22:07)
[2021-05-10] MEDS: ATORVASTATIN 20 MG TAB PO SCH (22:25)
--- NOTE | 2021-05-10 23:30 | NUR ---
AWAKE, SMILING, DIAPER CHANGED AND ASSISTED WITH REPOSITIONING.
--- NOTE | 2021-05-11 02:00 | NUR ---
AWAKE, ASSISTED WITH REPOSITIONING
[2021-05-11] MEDS: DEXT 5% / NACL 0.45% 1,000 ML IV SCH ×3 (03:50→17:12)
[2021-05-11] MEDS ORDERED: CLINDAMYCIN 600 MG/4 ML VIAL ONE (04:12)
[2021-05-11] MEDS: CLINDAMYCIN 600 MG in DEXTROSE 5% 50 ML IV SCH ×3 (04:35→21:09)
[2021-05-11] MEDS ORDERED: PIPERACILLIN/TAZOBACTAM 2.25 GM VIAL IV ONE (05:07)
[2021-05-11] MEDS: PIPERACILLIN/TAZOBACTAM 2.25 GM in DEXTROSE 5% 50 ML IV SCH ×4 (05:09→17:20)
--- NOTE | 2021-05-11 06:00 | NUR ---
AWAKE, ASSISTED WITH REPOSITIONING. DIAPER CHANGED.
--- NOTE | 2021-05-11 07:15 | NUR ---
Report and continuation of care received from DONG Cheatham.
--- NOTE | 2021-05-11 07:20 | NUR ---
Perineal care performed and patient assisted with change of linens, diaper, and repositioned to center per request. Chucks applied.
--- NOTE | 2021-05-11 07:50 | NUR ---
Dr. Garcia is evaluating patient at bedside. Verbal order for Fountain catheter received.
--- NOTE | 2021-05-11 08:03 | NUR ---
# 16 FR Coude tip Fountain catheter with 10 ml utilizing sterile technique. Immediate return of 450 ml clear/yellow urine noted. Bedside drainage bag placed below level of bladder. Urine sample collected and sent to lab. Pt tolerated procedure well.
--- NOTE | 2021-05-11 08:15 | NUR ---
NS 0.9% discontinued, D5% NS 0.45% initiated per orders.
[2021-05-11] MEDS: PANTOPRAZOLE 40 MG INJ VIAL IVP SCH ×2 (09:00→09:02)
[2021-05-11] MEDS: POLYETHYLENE GLYCOL 17 GM/PKT PO SCH (09:22)
[2021-05-11] MEDS: FAMOTIDINE 20 MG TAB GT SCH (09:22)
--- NOTE | 2021-05-11 10:10 | NUR ---
Patient vomited x 1 episode bilious vomit. HOB in high-fowlers and patient provided with kidney basin. Oral suction performed. SpO2 92% on room air; pt placed onto 4L via N/C at this time SpO2 95%. Denies any SOB. RR 25
[2021-05-11] MEDS: DOCUSATE 100 MG/10 ML UDC GT SCH (10:16)
--- NOTE | 2021-05-11 11:43 | NUR ---
Lab at bedside for redraw.
[2021-05-11 12:03] LABS: BASOPHILS # (AUTO) 0.1 K/uL (0.00-0.22); BASOPHILS % (AUTO) 0.9 % (0.0-2.0); EOSINOPHILS # (AUTO) 0.1 K/uL (0-0.4); EOSINOPHILS % (AUTO) 1.8 % (0.0-4.0); HEMATOCRIT 27.8 % (36-52); HEMOGLOBIN 9.4 g/dL (12.0-18.0); LYMPHOCYTES % (AUTO) 13.3 % (20.5-51.1); MEAN CORPUSCULAR HEMOGLOBIN 31 pg (27-31); MEAN CORPUSCULAR HGB CONC 34 g/dL (33-37); MEAN CORPUSCULAR VOLUME 92.8 fL (80-94); MONOCYTES # (AUTO) 0.5 K/uL (0.8-1.0); NEUTROPHILS # (AUTO) 5.6 K/uL (1.8-7.7); PLATELET COUNT (AUTO) 261 K/uL (140-450); RED BLOOD CELL COUNT(AUTO) 2.99 MIL/uL (4.20-6.10); WHITE BLOOD COUNT (AUTO) 7.2 K/uL (4.8-10.8)
--- NOTE | 2021-05-11 12:09 | NUR ---
Report given to DONG Blake. Advised of ETA 10-15 min.
--- NOTE | 2021-05-11 12:09 | NUR ---
RAD at bedside.
[2021-05-11 12:12] LABS: ANION GAP 15.4 (8-16); CARBON DIOXIDE 21.2 mmol/L (21-32); CHLORIDE 105 mmol/L (98-107); CREATININE 1.2 mg/dL (0.6-1.3); GLUCOSE 118 mg/dL (74-106); POTASSIUM 3.6 mmol/L (3.5-5.1); SODIUM SERUM 138 mmol/L (136-145); UREA NITROGEN, BLOOD 26 mg/dL (7-18)
--- NOTE | 2021-05-11 12:12 | NUR ---
G-tube culture swab collected, walked to lab and handed to CPT Nesha.
--- NOTE | 2021-05-11 12:21 | NUR ---
Patient will be admitted to care of Dr. Garcia. Admited to Med-Surg. Will go to room 125-B. Belongings list completed. Report to DONG Blake.
--- NOTE | 2021-05-11 12:45 | NUR ---
RECEIVED ADMISSION REPORT FROM ER NURSE. PT ADMITTED W/ DX OF WOUND INFECTION AND G-TUBE MALFUNCTION, NKA, FULL CODE, PT IS BED BOUND. REPORT OF AA&OX0 W/ GCS SCORE OF 9. PT COMING IN W/ ROACH INSERTED, AND PATENT IV IN R-HAND. REPORT OF 1 WOUND ON L-BUTTOCKS THAT IS NON-BLANCHABLE. REPORT OF BILIARY EMESIS IN ER OF 25 CC. XRAY WAS AT BEDSIDE TO CHECK FOR ASPIRATION, PENDING RESULTS. PT IS STABLE. WILL PERFORM ADMISSION ASSESSMENT WHEN PT ARRIVES TO UNIT.
[2021-05-11 13:00] VITALS: BP 121/81
--- NOTE | 2021-05-11 13:00 | NUR ---
ADMINISTERED ORDERED MEDS. PT TOLERATED WELL, VITALS WNL. WILL CONTINUE TO MONITOR.
--- NOTE | 2021-05-11 13:00 | NUR ---
PT ADMITTED TO UNIT. PT CONDITION IS STABLE, WITH O2 OF 2 L, ON FLUIDS RUNNING PER MD ORDER, VITALS WNL. PT AA&O X 1 ORIENTED TO NAME, WITH CONFUSION. PT REPORTS BEING TIRED AND WANTING TO "TAKE A NAP". WILL CONTINUE TO MONITOR.
--- NOTE | 2021-05-11 15:00 | NUR ---
PERFORMED ROUNDS FOR PT. PT STABLE AND ASLEEP. WILL PERFORM FREQ ROUNDING.
[2021-05-11 16:00] VITALS: BP 119/70
--- NOTE | 2021-05-11 17:00 | NUR ---
ADMINISTERED ORDERED MEDS. PT TOLERATED WELL, VITALS WNL. WILL CONTINUE TO MONITOR.
--- NOTE | 2021-05-11 17:00 | NUR ---
PERFORMED ROUNDS FOR PT. PT STABLE AND ASLEEP. WILL PERFORM FREQ ROUNDING.
--- NOTE | 2021-05-11 19:21 | NUR ---
GAVE CHANGE OF SHIFT REPORT TO NIGHT NURSE. PT CONDITION IS STABLE.
[2021-05-11 20:00] VITALS: BP 116/75
--- NOTE | 2021-05-11 20:15 | NUR ---
AWAKE,ALERT AND CONFUSED.RESP.UNLABORED. IVF INFUSING WELL.G.T.FEEDING IS IN PROGRESS.NO DISTRESS NOTED AT THIS TIME. F/C PATENT. WILL CONT.MONITORING.
[2021-05-11] MEDS: POLYETHYLENE GLYCOL 17 GM/PKT GT SCH (21:09)
[2021-05-11] MEDS: ATORVASTATIN 20 MG TAB PO SCH (21:10)
[2021-05-11] MEDS: TAMSULOSIN 0.4 MG CAP PO SCH (21:10)
[2021-05-11] MEDS: NACL 0.9% 1,000 ML IV SCH (23:00)
[2021-05-12] MEDS: PIPERACILLIN/TAZOBACTAM 2.25 GM in DEXTROSE 5% 50 ML IV SCH ×4 (00:27→17:49)
[2021-05-12 04:00] VITALS: BP 116/70
[2021-05-12] MEDS: CLINDAMYCIN 600 MG in DEXTROSE 5% 50 ML IV SCH ×3 (05:13→21:19)
--- NOTE | 2021-05-12 07:00 | NUR ---
RECEIVED REPORT FROM TEAM ASSEMBLY LINE MACHINE OPERATOR NURSE AT BEDSIDE. PT IS STABLE, AWAKE AND CONFUSED. PT RUNNING FLUIDS PER MD ORDERS. NO CHANGES IN CONDITION OVERNIGHT. WILL CONTINUE WITH POC AND PERFORM FREQ ROUNDS.
--- NOTE | 2021-05-12 07:01 | NUR ---
HE IS CONFUSED.G-T FEEDING AND IVF ARE IN PROGRESS.NO DISTRESS NOTED.
--- NOTE | 2021-05-12 08:25 | NUR ---
ADMINISTERED MORNING MEDS VIA G-TUBE AND PERFORMED ROUNDS. PT WAS ASLEEP UPON ENTERING ROOM AND I WOKE HIM FOR HIS MEDS. PT WAS CALM AND HELPFUL WITH VIOLIN MAKER HAND. PT TOLERATED MEDS WELL, CONDITION IS STABLE, ON 2 L O2 NC, IV FLUIDS AND G-TUBE FEED RUNNING PER MD ORDERS. WILL CONTINUE TO PERFORM FREQ ROUNDS.
--- NOTE | 2021-05-12 08:25 | NUR ---
FNS CONSULTS FOR WOUNDS/PRESSURE INJURIES AND MALNUTRITION WERE RECEIVED.
[2021-05-12 08:43] LABS: BASOPHILS % (AUTO) 0.7 % (0.0-2.0); EOSINOPHILS # (AUTO) 0.5 K/uL (0-0.4); EOSINOPHILS % (AUTO) 7.4 % (0.0-4.0); HEMOGLOBIN 8.7 g/dL (12.0-18.0); LYMPHOCYTES # (AUTO) 1.2 K/uL (2.0-11.5); LYMPHOCYTES % (AUTO) 17.9 % (20.5-51.1); MEAN CORPUSCULAR HEMOGLOBIN 31 pg (27-31); MEAN CORPUSCULAR HGB CONC 34 g/dL (33-37); MEAN CORPUSCULAR VOLUME 93.4 fL (80-94); MONOCYTES # (AUTO) 0.5 K/uL (0.8-1.0); MONOCYTES % (AUTO) 8.4 % (1.7-9.3); NEUTROPHILS # (AUTO) 4.2 K/uL (1.8-7.7); NEUTROPHILS % (AUTO) 65.6 % (42.2-75.2); PLATELET COUNT (AUTO) 234 K/uL (140-450); RED BLOOD CELL COUNT(AUTO) 2.78 MIL/uL (4.20-6.10); RED CELL DISTRIBUTION WIDTH 16.3 % (11.6-13.7); WHITE BLOOD COUNT (AUTO) 6.4 K/uL (4.8-10.8)
[2021-05-12] MEDS: PANTOPRAZOLE 40 MG INJ VIAL IVP SCH (08:43)
[2021-05-12] MEDS: POLYETHYLENE GLYCOL 17 GM/PKT GT SCH ×2 (08:43→21:19)
[2021-05-12] MEDS: FAMOTIDINE 20 MG TAB GT SCH (08:44)
[2021-05-12] MEDS: DOCUSATE 100 MG/10 ML UDC GT SCH (08:44)
[2021-05-12 08:45] LABS: CARBON DIOXIDE 23.3 mmol/L (21-32); CHLORIDE 105 mmol/L (98-107); CREATININE 1.2 mg/dL (0.6-1.3); GLUCOSE 112 mg/dL (74-106); POTASSIUM 3.3 mmol/L (3.5-5.1); SODIUM SERUM 138 mmol/L (136-145); UREA NITROGEN, BLOOD 23 mg/dL (7-18)
--- NOTE | 2021-05-12 10:35 | NUR ---
SKIN ASSESSMENT DONE WITH THIS 80 Y/O PT. AAX3 REQUIRE ASSISTANCE IN TURNING AND REPOSITION.PT. WITH LOW LORI SCALE, PT. ADMITTED WITH NON-BLANCHABLE REDNESS AND MOISTURE ASSOCIATED DERMATITIS TO BUTTOCKS. GT SITE JYOTI-STOMA SKIN INTACT, NO S/S OF INFECTION, CONTINUE TO FOLLOW PRESSURE INJURY PREVENTION INTERVENTIONS.POC DISCUSSED WITH PT. PT. VERBALIZES UNDERSTANDING. -APPLY Z GUARD TO GT SITE JYOTI-STOMA SKIN AND BUTTOCKS BID AND PRN IF SOILING, CISCO UNIFIED COMMUNICATIONS ENGINEER -TURN AND REPOSITION PATIENT Q 2H -ASSESS AND MONITOR SKIN CONDITION DURING POSITION CHANGE -OFFLOAD BILATERAL HEELS BY PLACING PILLOWS UNDER CALVES AT ALL TIMES, UNLESS OTHERWISE CONTRAINDICATED -PRESSURE REDISTRIBUTION BY PLACING PILLOWS AND OFFLOADING SACRALCOCCYX -KEEP SKIN CLEAN AND DRY AT ALL TIMES.
--- NOTE | 2021-05-12 10:48 | NUR ---
PT ROUNDED ON PT HAS EYES CLOSED, BREATHING IS SYMMETRICAL AND UNLABORED. NO S/SX OF DISTRESS
--- NOTE | 2021-05-12 10:55 | NUR ---
PHYSICAL THERAPIST AT BEDSIDE. PT TOLERATING WELL
--- NOTE | 2021-05-12 11:03 | NUR ---
PT PULLED UP AND REPOSITIONED. PT IS COMPLAINING OF 10/10 PAIN IN LEFT LEG. BREATHING EXERCISES AND RELAXATION TECHNIQUES INEFFECTIVE. PT REQUEST MEDICATION
--- NOTE | 2021-05-12 11:09 | NUR ---
PRN MEDICATION GIVEN FOR PAIN. WASTE DONE WITH 2ND RN. PT EDUCATED REINFORCEMENT NEEDED . PT TOLERATED WELL.
[2021-05-12 12:00] VITALS: BP 129/54
--- NOTE | 2021-05-12 12:18 | NUR ---
PT STABLE. PT IS CURRENTLY SLEEPING ON RA, WITH IV ABX AND FLUIDS RUNNING PER MD ORDER. NO SIGNS OF PAIN. WILL CONTINUE WITH FREQUENT ROUNDS.
--- NOTE | 2021-05-12 13:58 | NUR ---
DR. CASH APPROVED RD RECOMMENDATIONS TO INCREASE TUBE FEEDING RATE TO 65 ML/HR OF VITAL AF. RECEIVED TORB.
--- NOTE | 2021-05-12 14:34 | NUR ---
DC PLANNING: MAGGI MARTINS SPOKE WITH ESTHER REQUESTING PHYSICAL THERAP'S NOTES FOR AUTH FOR [facility]. FAXED THE PT NOTES ESTHER PROVIDE THE AUTH # FOR TRANSPORT [id number] AND TO USE [facility]. CALLED [facility] PROVIDE ROOM NUMBER PT CAN TO GO ROOM 118B. AWAITING FOR AUTH FOR SNF. CM TO FOLLOW Addendum: 05/13/21 at 0925 by Lisa Garcia RN DC PLANNING: MAGGI MARTINS SPOKE WITH ESTHER PROVIDE AUTH # FOR [facility] [id number]. GOING TO ROOM 118B # TO GIVE REPORT [id number] [facility] WITH [facility] AVAILABLE TIME BETWEEN 2-3 PM HOWEVER IF THEY HAVE CANCELATION WILL COME AT 11:30AM NOTIFIED MATILDA UMANA. CM TO FOLLOW
--- NOTE | 2021-05-12 15:41 | NUR ---
05/12/21 RD FOLLOW UP COMPLETED PLEASE REFER TO NUTRITION ASSESSMENT UNDER CARE ACTIVITY FOR ESTIMATED NUTRITIONAL NEEDS. 1. RECOMMENDED TO INCREASE GOAL RATE OF VITAL TO 65 ML/HR X24 HR -THIS WILL PROVIDE 1560 ML, 1872 KCAL AND 117 GM OF PROTEIN, MEETING 100% OF ESTIMATED KCAL AND PROTEIN NEEDS 2. CONTINUE WITH FREE WATER FLUSH OF 100 ML Q4H 3. RECOMMEND DUNG BID 4. RD TO FOLLOW-UP 2-3 DAYS, HIGH RISK MILADIS LIRA RD
--- NOTE | 2021-05-12 17:30 | NUR ---
PERFORMED ROUNDS. PT CONDITION IS STABLE, TAKING A NAP, ON RA, IVF AND GT FEED RUNNING PER MD ORDER. WILL CONTINUE TO PERFORM FREQ ROUNDS.
[2021-05-12] MEDS: NACL 0.9% 1,000 ML IV SCH (17:48)
--- NOTE | 2021-05-12 19:20 | NUR ---
RECIVED PT AWAKE, ABLE TO RESPOND SIMPLE QUESTION BUT WITH CONFUSION, NO SHORTNESS OF BREATH NOTED, IV PERIPHERAL ON RIGHT HAND GAUGE 24, ABDOMEN SOFT NON DISTENDED, GT SITE INTACT WITH DRESSING ,NO DRAINAGE NOTED, VITAL SIGN OBTAINED, REPOSITIONED WITH PHOTO CARTOGRAPHER, SKIN WARM TO TOUCH RESP. EVEN AND UNLABORED, HOB UP, CALL LIGHT WITHIN EASY REACH, PILLOWS UNDER BOTH LEGS, NOTED DRESSING ON LEFT BUTTOCKS.
--- NOTE | 2021-05-12 19:22 | NUR ---
PT ENDORSED TO SINGING TEACHER RN. PT IN STABLE CONDITION
--- NOTE | 2021-05-12 19:30 | NUR ---
RECEIVED PT AWAKE, ALERT, AWAKE BUT WITH PERIODS OF CONFUSION, SKIN WARM TO TOUCH RESP. EVEN AND UNLABORED,NO SOB, ON O2 AT 2L, ROACH DRAINING TO DARK MARIANNE URINE, DRESSING INTACT ON LEFT BUTTOCKS, GT INTACT , DRESSING IN PLACE, NO RESIDUAL NOTED, Addendum: 05/13/21 at 0319 by Anuradha Matthews RN DUPLICATE
[2021-05-12 20:00] VITALS: BP 104/71
[2021-05-12] MEDS: TAMSULOSIN 0.4 MG CAP PO SCH (21:20)
[2021-05-12] MEDS: ATORVASTATIN 20 MG TAB PO SCH (21:21)
[2021-05-13] MEDS: PIPERACILLIN/TAZOBACTAM 2.25 GM in DEXTROSE 5% 50 ML IV SCH ×2 (00:28→06:15)
[2021-05-13] MEDS ORDERED: Z-GUARD PASTE TP SCH (01:00)
--- NOTE | 2021-05-13 03:19 | NUR ---
SLEEPING AT THIS TIME, NO DISTRESS NOTED.
[2021-05-13 04:47] VITALS: BP 108/65
[2021-05-13] MEDS: CLINDAMYCIN 600 MG in DEXTROSE 5% 50 ML IV SCH (05:00)
--- NOTE | 2021-05-13 06:07 | NUR ---
PATIENT HAS A LOOSE STOOL WILL ENDORSE TO HOLD LAXATIVE, PT ABLE TO SLEEP GOOD, NO SOB NOTED, VITAL SIGN STABLE, NO UNUSUAL OBSERVATION NOTED.
[2021-05-13 06:10] LABS: BASOPHILS # (AUTO) 0.1 K/uL (0.00-0.22); EOSINOPHILS # (AUTO) 0.5 K/uL (0-0.4); HEMATOCRIT 23.4 % (36-52); HEMOGLOBIN 7.9 g/dL (12.0-18.0); LYMPHOCYTES # (AUTO) 1.3 K/uL (2.0-11.5); LYMPHOCYTES % (AUTO) 21.7 % (20.5-51.1); MEAN CORPUSCULAR HEMOGLOBIN 31 pg (27-31); MEAN CORPUSCULAR HGB CONC 34 g/dL (33-37); MONOCYTES # (AUTO) 0.6 K/uL (0.8-1.0); MONOCYTES % (AUTO) 9.7 % (1.7-9.3); NEUTROPHILS # (AUTO) 3.7 K/uL (1.8-7.7); NEUTROPHILS % (AUTO) 59.6 % (42.2-75.2); PLATELET COUNT (AUTO) 215 K/uL (140-450); RED BLOOD CELL COUNT(AUTO) 2.55 MIL/uL (4.20-6.10); RED CELL DISTRIBUTION WIDTH 16.2 % (11.6-13.7); WHITE BLOOD COUNT (AUTO) 6.2 K/uL (4.8-10.8)
--- NOTE | 2021-05-13 06:14 | NUR ---
HEEL PROTECTOR IN PLACE
[2021-05-13 06:40] LABS: ANION GAP 11.4 (8-16); CARBON DIOXIDE 21.4 mmol/L (21-32); CHLORIDE 107 mmol/L (98-107); CREATININE 1.2 mg/dL (0.6-1.3); GLUCOSE 101 mg/dL (74-106); POTASSIUM 3.8 mmol/L (3.5-5.1); SODIUM SERUM 136 mmol/L (136-145); UREA NITROGEN, BLOOD 21 mg/dL (7-18)
--- NOTE | 2021-05-13 06:55 | NUR ---
PATIENT SLEEPING WILL ENDORSE TO INCOMING SHIFT, GT ONGOING WELL TOLERATED, IVF ONGOING WELL TOLERATED, ROACH DRAINING TO A CLEAR MARIANNE URINE.
--- NOTE | 2021-05-13 07:36 | NUR ---
ENDORSED TO INCOMING NURSE
[2021-05-13 08:00] VITALS: BP 100/61
--- NOTE | 2021-05-13 08:44 | NUR ---
Patient awake, alert and oriented. Denies pain, resting in bed and has no further needs.
[2021-05-13] MEDS ORDERED: AMOX-999 PO (10:11)
[2021-05-13] MEDS ORDERED: CLIN300C7 PO (10:12)
[2021-05-13] MEDS: PANTOPRAZOLE 40 MG INJ VIAL IVP SCH (10:26)
[2021-05-13] MEDS: DOCUSATE 100 MG/10 ML UDC GT SCH (10:26)
[2021-05-13] MEDS: FAMOTIDINE 20 MG TAB GT SCH (10:27)
[2021-05-13] MEDS: POLYETHYLENE GLYCOL 17 GM/PKT GT SCH (10:27)
[2021-05-13 10:49] VITALS: BP 100/61
--- NOTE | 2021-05-13 11:32 | NUR ---
Called and gave report to Maria D Thomas. Gave information of medications,disease process and discharge instruction. Rn verbalized understanding.
[2021-05-13 15:59] LABS: PSA FREE 0.75 ng/mL
== END 2021-05-13 14:25 | DRG 393 ==
LOC: MED 15:32 → MTU 21:39 → MMU 05-11 12:03
PROVIDERS: ADMIT Hospitalist; ATTEND Hospitalist
DX: K94.23 Gastrostomy malfunction (principal); N17.0 Acute kidney failure with tubular necrosis; E43 Unspecified severe protein-calorie malnutrition; N18.4 Chronic kidney disease, stage 4 (severe); G93.40 Encephalopathy, unspecified; N13.30 Unspecified hydronephrosis; K94.22 Gastrostomy infection; E78.5 Hyperlipidemia, unspecified; F03.90 Unspecified dementia, unspecified severity, without behavioral disturbance, psychotic disturbance, mood disturbance, and anxiety; F20.9 Schizophrenia, unspecified; I12.9 Hypertensive chronic kidney disease with stage 1 through stage 4 chronic kidney disease, or unspecified chronic kidney disease; K21.9 Gastro-esophageal reflux disease without esophagitis; D64.9 Anemia, unspecified; N40.0 Benign prostatic hyperplasia without lower urinary tract symptoms; R74.01 Elevation of levels of liver transaminase levels; R33.9 Retention of urine, unspecified; Z20.822 Contact with and (suspected) exposure to COVID-19; Z90.5 Acquired absence of kidney
CPT/HCPCS: 36415; 71045; 76705; 80048; 80053; 83605; 83735; 84100; 84153; 84154; 85025; 87040; 87081; 96365; 96367; 97110; 97163-GP; 97530; 99285; C9113; J1644; J2001; J2270; J2543; J3370; J3480; J3490; J7030; J7060